=== PATIENT | male | born 1990 | race African-American/Black ===

== ENCOUNTER 2017-11-13 00:14 | Emergency (ER) | payer SELFPAY ==
[~2017-11-13] VITALS: Ht 172.7 cm; Wt 72.7 kg
[2017-11-13 04:43] VITALS: BP 141/87
== END 2017-11-13 04:45 | disposition home or self-care (01) ==
LOC: ER 01:10
DX: S60.512A Abrasion of left hand, initial encounter (principal); F10.10 Alcohol abuse, uncomplicated; W22.01XA Walked into wall, initial encounter; Y93.89 Activity, other specified; Y92.89 Other specified places as the place of occurrence of the external cause; Y99.8 Other external cause status
CPT/HCPCS: 73130; 99284; Z7610